=== PATIENT | female | born 1980 | race Caucasian/White ===

== ENCOUNTER 2019-01-05 16:17 | Emergency (ER) | payer BC, OTHER ==
[~2019-01-05] VITALS: Ht 170.2 cm; Wt 87.7 kg
[~2019-01-05 16:17] MED LIST: DICL112S2 TP; HYDR-3237 PO; HYDR-3241 PO; OXYC-302 PO; POLY17PO29 PO; VITA0.4T5 PO; [UNRECOGNIZED DRUG - OTHER] PO; [UNRECOGNIZED DRUG - OTHER] PO; [UNRECOGNIZED DRUG - OTHER] PO; [UNRECOGNIZED DRUG - OTHER] PO; [UNRECOGNIZED DRUG - OTHER] PO; doterra PO
--- NOTE | 2019-01-05 16:32 | NUR ---
PT IN ROOM. EDPA BEDSIDE.
--- NOTE | 2019-01-05 16:41 | NUR ---
38 Y/O FEMALE PRESENTS TO ED WITH C/O SOB AND CP "I HAD SOME CP MONDAY NIGHT. I WENT TO THE [facility]IROPRACTOR YESTERDAY, SHE SAID I HAD A RIB OUT. IT TOOK AWAY THE SHARP PAIN. BUT I STILL HAVE THE PRESSURE. TODAY I GOT SOME LEFT ARM PAIN AND NAUSEOUS. MY SOB HAS GOTTEN WORSE OVER THE LAST FEW DAYS." NO C/O V/D,TRAUMA, SYNCOPE. BEDSIDE. 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
[2019-01-05] MEDS ORDERED: ASPIRIN 81 MG TABLET CHEW PO ONE (17:00)
[2019-01-05 17:17] LABS: BASOPHILS # (AUTO) 0.01 x10^3/uL (0-0.1); BASOPHILS % (AUTO) 0 % (0-1); EOSINOPHILS # (AUTO) 0.12 x10^3/uL (0-0.4); EOSINOPHILS % (AUTO) 2 % (1-7); LYMPHOCYTES # (AUTO) 1.41 x10^3/uL (1-3.4); LYMPHOCYTES % (AUTO) 18 % (22-44); MD NO; MEAN CORPUSCULAR HEMOGLOBIN 29.2 pg (27.0-34.8); MEAN PLATELET VOLUME 8.6 fL (7.4-10.4); MONOCYTES # (AUTO) 0.46 x10^3/uL (0.2-0.8); MONOCYTES % (AUTO) 6 % (2-9); NEUTROPHILS # (AUTO) 5.89 x10^3/uL (1.8-6.8); NEUTROPHILS % (AUTO) 75 % (42-75); PLATELET COUNT 320 x10^3/uL (130-400); RED BLOOD COUNT 4.88 x10^6/uL (3.82-5.3); RED CELL DISTRIBUTION WIDTH 13.1 % (9.6-15.2)
[2019-01-05 17:19] LABS: ALANINE AMINOTRANSFERASE 20 U/L (12-78); ALBUMIN 3.8 g/dL (3.4-5.0); ANION GAP 7 mmol/L (5-15); CALCIUM 8.8 mg/dL (8.5-10.1); CHLORIDE 107 mmol/L (98-107)
[2019-01-05 17:24] LABS: ALKALINE PHOSPHATASE 64 U/L (45-117); BILIRUBIN,TOTAL 0.4 mg/dL (0.2-1.0); CREATININE 0.95 mg/dL (0.55-1.02); TOTAL PROTEIN 7.3 g/dL (6.4-8.2); TROPONIN I < 0.015 ng/mL (0.000-0.045)
[2019-01-05] MEDS ORDERED: ASPIRIN 81 MG TABLET CHEW ONE (17:30)
--- NOTE | 2019-01-05 17:41 | NUR ---
PT AMBULATORY WITH STEADY GAIT TO BATHROOM.
[2019-01-05 18:02] VITALS: BP 129/50
--- NOTE | 2019-01-05 18:02 | NUR ---
PT RESTING ON [employer] PLAYING ON CELL PHONE. NO ACUTE DISTRESS NOTED. BEDSIDE. UA SENT TO LAB. NO NEEDS REQUESTED AT THIS TIME.
[2019-01-05 18:07] LABS: HCG UR SG 1.013 (1.003-1.030); MICROSCOPIC NOT IND
[2019-01-05 18:18] LABS: CULTURE INDICATED? NO
--- NOTE | 2019-01-05 18:36 | NUR ---
Patient/Caregiver given discharge instructions and they have confirmed that they understand the instructions. Patient ambulatory with steady gait. [PT LEFT WITH ALL PERSONAL BELONGINGS.
== END 2019-01-05 18:38 | disposition home or self-care (01) ==
LOC: ED 18:36
DX: R07.89 Other chest pain (principal); R11.0 Nausea
CPT/HCPCS: 36415; 71045; 80053; 81003; 81025; 83690; 84484; 85025; 93005; 99284